=== PATIENT | female | born 1965 | race Caucasian/White ===

== ENCOUNTER 2017-03-08 09:38 | Emergency (ER) | payer BC ==
[~2017-03-08] VITALS: Ht 162.6 cm; Wt 91.6 kg
--- NOTE | ~2017-03-08 | CT4 ---
[facility] A Service of [facility] & [facility] & [facility] RADIOLOGY TEXT RESULTS PATIENT: CADY WAGNER LOCATION: SED : 69 UNIT #: [id number] AGE: [address]: Asha Ferrer MD SEX: F ORDER DR: [id number] [address] [address] [id number] MR#: [id number] Acc #: [id number] NAME: CADY WAGNER : 1965 SEX: F STUDY DATE/TIME: 03/08/2017 10:33 UNIT: SED ROOM: STUDY DESCRIPTION: CT Abd and Pelv Wo Cont Attending Physician: Asha Ferrer M.D. Ordering Physician: Asha Ferrer M.D. Primary Care Physician: Jocelyne Dia M.D. MEDICAL IMAGING REPORT This report is preliminary unless electronic signature is present. EXAM Abdomen and pelvis CT without contrast 03/08/2017 INDICATIONS Sharp left lower quadrant pain for the past hour, nausea and vomiting, status post lap-band placement cholecystectomy. Uterine ablation hiatal hernia and tubal ligation procedures. TECHNIQUE Noncontrast abdomen and pelvis CT was performed. Comparison 03/08/2016. This CT exam was performed with one or more of the following radiation dose reduction techniques: automatic control, adjustment of mA and/or kV according to patient size, and iterative reconstruction. FINDINGS CT ABDOMEN: Exam markedly degraded by noncontrast technique. Included lung bases are clear. No pericardial effusion. Postop changes of gastric band placement. Large hiatal hernia or distended distal esophagus with an air-fluid level. Findings are unchanged from the prior study. Consider the possibility of a tight lap band in the appropriate clinical context. Aorta unremarkable. Spleen and adrenal glands and pancreas unremarkable gallbladder surgically absent. Liver unremarkable. Tiny nonobstructing stones in both kidneys. No adenopathy. CT PELVIS: Bladder unremarkable. There are numerous vascular calcifications in the pelvis. Many of these are in close proximity to the distal ureters and bladder but there is no convincing evidence of obstructing stone on either side. Correlate with urinalysis in this regard. It would be impossible to fully exclude a distal ureteral stone on the left. Equivocal passage of a stone into the bladder perhaps from the right based on CT imaging features. No adnexal mass. Incidental dominant follicle in the left ovary. No drainable fluid collection or free fluid in the pelvis. Bowel demonstrates no obstruction or focal STS. [facility] A Service of [facility] & [facility] & [facility] RADIOLOGY TEXT RESULTS PATIENT: CADY WAGNER [place] [facility] [place] [birth year] UNIT #: [id number] AGE: [address]: CarissaSeptember SEX: F ORDER DR: inflammatory change. Appendix normal. Tiny umbilical hernia contains fat only. Inguinal canals unremarkable. Osseous structures demonstrate no suspicious bone lesions. IMPRESSION 1. There is no distinct evidence of hydronephrosis. No convincing evidence of ureteral stone. Probable vascular calcifications in the pelvis. 2. Not mentioned above there is some subtle stranding associated with the left pararenal fat. This could potentially represent an element of ascending urinary tract infection, recent passage of a stone or less likely pyelonephritis. There is a stone within the bladder measuring about 1-2 mm and this could potentially have passed from the left. The findings regarding the left kidney are very subtle. 3. Additional nonobstructing stones in both kidneys. 4. Appendix normal. 5. Surgical absence of the gallbladder. 6. Lap-band placement with a hiatal hernia or sequela of a tight lap band with an air-fluid level in distended distal esophagus. 7. Incidental left ovarian follicle. 8. There is no bowel obstruction or drainable fluid collection. Dictated by... Jairo Drake M.D. THIS IS AN ELECTRONICALLY VERIFIED REPORT Jairo Drake M.D. at 03/09/2017 8:51 AM MALIK/[employer] TD: 03/09/2017 08:42 JOB #: [id number] MEDICAL IMAGING REPORT Page 1 of 1
[~2017-03-08 09:38] MED LIST: ADVAIR 2501 DISK W/D PO; ALBUTEROL17 GM INH; AMITRIPTYLINE H25 MG PO; AMITRYPTYLINE PO; ANTIVERT PO; ANUSOL-HC CREAM30 G1 EXT; AUGMENTIN875 MG; BACTRIM DS TABL1 TA1 PO; BACTRIM DS TABL1 TA2 PO; BACTROBAN22 GM TP; BENAZEPRIL PO; BENTYL20 MG PO; BIAXIN PO; BIRTH CONTROL PILL PO; BP MED; CAPOZIDE PO; COLACE PO; DIAZEPAM PO; DIFLUCAN PO; DOXYCYCLINE HY100 M1 PO; FLOMAX0.4 M1 PO; FLONASE 0.05% N16 GM; HCTZ; HYDROCODON-ACE1 EAC9 PO; KEFLEX500 M2 PO; KEFLEX500 MG PO; LEVAQUIN250 MG PO; MACROBID100 M1 PO; MAGIC MOUTHWASH; MUCINEX DM1 TAB.SR . PO; NASAL SPRAY; OMNICEF PO; PENICILLIN PO; PERCOCET5/325 PO; PHENERGAN25 MG PO; PREDNISONE PO; PREDNISONE10 MG PO; PREVACID PO; ROBAXIN PO; SUDAFED30 M1 PO; TESSALON200 MG PO; TOPROL XL 50 MG50 M1 PO; TOPROL XL PO; TOPROL XL50 MG PO; TYLENOL #3 PO; TYLOX 5/500 CAP1 CAP PO; VALTREX PO; VICODIN 5/1 TAB 5/50 PO; VICODIN PO; Z-PAK; ZOFRAN ODT4 MG PO
[2017-03-08 10:30] LABS: URINE SOURCE CLEAN CATCH
[2017-03-08 10:34] LABS: BASOPHIL% 0.7 % (0-2.5); EOSINOPHIL# 0.1 X10e3 (0-0.7); EOSINOPHIL% 1.5 % (0.0-7.0); HEMOGLOBIN 13.4 gm/dL (12.0-16.0); LYMPHOCYTE# 1.5 X10e3 (1.0-3.5); LYMPHOCYTE% 27.7 % (17.0-45.0); MEAN CELL VOLUME 88.5 FL (83-96); MEAN CORPUSCULAR HEMOGLOBIN 29.6 PG (28-34); MEAN CORPUSCULAR HGB CONC 33.5 g/dL (30-36); MEAN PLATELET VOLUME 8.1 FL (6.5-11.5); MONOCYTE# 0.3 X10e3 (0-1.0); MONOCYTE% 5.8 % (3.0-12.0); NEUTROPHIL# 3.6 X10e3 (1.5-7.1); NEUTROPHIL% 64.3 % (40-75); PLATELET COUNT 219 X10e3 (140-420); RED BLOOD COUNT 4.51 X10e (3.90-5.30); RED CELL DISTRIBUTION WIDTH 14.2 % (11.0-15.5); WHITE BLOOD COUNT 5.6 X10e3 (4.0-10.5)
[2017-03-08 10:36] LABS: URINE APPEARANCE HAZY; URINE BILIRUBIN NEG (NEG); URINE BLOOD 3+ (NEG); URINE COLOR YELLOW; URINE GLUCOSE NEG (NORM); URINE KETONE NEG (NEG); URINE LEUKOCYTE ESTERASE NEG (NEG); URINE NITRATE NEG (NEG); URINE PROTEIN TRACE (NEG); URINE SPECIFIC GRAVITY >=1.030 (1.003-1.035); URINE UROBILINOGEN 0.2 MG/DL (NORM)
[2017-03-08 10:38] LABS: MICRO INDICATED? YES
[2017-03-08 10:39] LABS: CULTURE INDICATED? YES
[2017-03-08 10:40] LABS: URINE BACTERIA 1+ (NEG); URINE GRANULAR CAST 0-2 /[HPF]; URINE HYALINE CAST 0-2 /[HPF]; URINE MUCUS PRESENT; URINE RBC 100-200 /[HPF] (0-2); URINE SQUAMOUS EPITHELIAL CELL MODERATE /[HPF]
[2017-03-08 10:43] LABS: DIFF IND NO
[2017-03-08 10:57] LABS: ALBUMIN SERUM 4.7 g/dL (3.5-5.0); BILIRUBIN, DIRECT 0.1 mg/dL (0.0-0.2); BILIRUBIN,INDIRECT 0.5 mg/dL (0.0-0.9); BILIRUBIN,TOTAL 0.6 mg/dL (0.2-2.0); CALCIUM SERUM 9.3 mg/dL (8.4-10.2); GLOM FILT RATE Estimated 66.1 mL/min (>60); POTASSIUM 3.4 mmol/L (3.5-5.1); PROTEIN TOTAL SERUM 7.3 g/dL (6.0-8.3)
== END 2017-03-08 12:27 | disposition home or self-care (01) ==
LOC: SED 09:38
PROVIDERS: Student in an Organized Health Care Education/Training Program
DX: N20.0 Calculus of kidney (principal); Z87.442 Personal history of urinary calculi; I10 Essential (primary) hypertension; Z98.51 Tubal ligation status; Z90.49 Acquired absence of other specified parts of digestive tract; Z79.899 Other long term (current) drug therapy; Z88.8 Allergy status to other drugs, medicaments and biological substances
CPT/HCPCS: 36415; 74176; 80048; 80076; 81003; 82150; 83690; 85025; 87086; 96361; 96374; 96375; 99284; J1170; J2405